=== PATIENT | female | born 1955 | race Caucasian/White ===

== ENCOUNTER → 2020-03-20 15:15 | Outpatient (CLI) | payer MEDICARE, BC, OTHER, SELFPAY ==
[2020-03-20 18:59] LABS: Bacteria Urine None Seen
[2020-03-20 19:29] LABS: Appearance Urine UA CLEAR; Bilirubin Urine UA NEGATIVE (NEGATIVE); Color Urine UA YELLOW; Glucose Urine UA NEGATIVE (Negative); Ketones Urine UA NEGATIVE (NEGATIVE); Leukocyte Esterase Urine UA NEGATIVE (NEGATIVE); Nitrite Urine UA NEGATIVE (Negative); Occult Blood Urine UA NEGATIVE (Negative); Protein Urine UA NEGATIVE (Negative); Specific Gravity Urine UA 1.025 (1.000-1.035); Urobilinogen Urine UA 0.2 E.U./dL (0.2)
[2020-03-20 19:44] LABS: Culture Indicated Urine Cult Not Indicated; Mucus Urine 1+ (Negative); RBC Urine 0-1/HPF (0-5/HPF); Squamous Epithelial Cell Urine 0-1 /HPF (0-5/HPF); Transitional Epi Cells Urine 0-1/HPF (0-5/HPF); WBC Urine 0-1/HPF (0-5/HPF)
== END ==
PROVIDERS: Family Provider Physician Assistant Medical; PCP Physician Assistant Medical; Visit Provider Obstetrics & Gynecology
DX: R31.9 Hematuria, unspecified (principal)
CPT/HCPCS: 81001

== ENCOUNTER 2021-04-23 02:34 | Emergency (ER) | payer MEDICARE, BC, OTHER, SELFPAY ==
[2021-04-23 02:50] VITALS: BP 158/95; PULSE 78; RESP 18; TEMP 36.2; O2SAT 97; BMI 32.0
--- NOTE | 2021-04-23 02:50 | DI.RAD.S_ITS ---
PROCEDURE: XR ACUTE ABDOMEN SERIES INDICATIONS: Abdominal pain TECHNIQUE: One view chest and two views of the abdomen were acquired. COMPARISON: None. FINDINGS: Surgical changes and devices: None. Chest: Lungs are clear. Heart size is normal. No pleural effusions. No pneumoperitoneum. Abdomen: Scattered small bowel and colonic gas. No dilated loops of bowel seen. No air-fluid levels. Prominent stool in the colon. No suspicious calcifications. Visualized solid organ contours appear normal. Bones: No suspicious bony lesions. Minimal scoliosis at the lumbar spine. IMPRESSION: No acute cardiopulmonary abnormality. Prominent stool in the colon. This could be seen in constipation. This report is concordant with the overnight preliminary interpretation. Dictated by: Thanh Rodriguez M.D. on 04/23/2021 at 8:17 Approved by: Thanh Rodriguez M.D. on 04/23/2021 at 8:18
[2021-04-23 03:38] LABS: BUN Creatinine Ratio 18.5 (6-22); Blood Urea Nitrogen 15 mg/dL (7-17); Calcium 9.4 mg/dL (8.4-10.2); Carbon Dioxide 31 mmol/L (22-32); Chloride 103 mmol/L (98-107); Estimated Glomerular Filt Rate > 60.0 mL/min (>60); Glucose 100 mg/dL (80-110); HEMOLYSIS < 15 (0-50); Potassium 3.5 mmol/L (3.4-5.1); Sodium 141 mmol/L (137-145)
[2021-04-23 03:39] LABS: Add Manual Diff / Slide Review NO; Basophils Absolute Auto 0 /uL (0-100); Basophils Percent Auto 0.9 % (0-2); Eosinophils Absolute Auto 200 /uL (0-450); Eosinophils Percent Auto 4.4 % (2-4); Hematocrit 39.4 % (36-46); Hemoglobin 13.2 g/dL (12.0-16.0); Lymphocytes Absolute Auto 1600 /uL (1100-4500); Mean Corpuscular HGB Conc 33.5 % (30-36); Mean Corpuscular Hemoglobin 30.7 PG (26-34); Mean Corpuscular Volume 91.8 fL (80-100); Monocytes Absolute Auto 400 /uL (0-900); Monocytes Percent Auto 8.4 % (3-14); Neutrophils Absolute Auto 2100 /uL (1500-7000); Neutrophils Percent Auto 49.3 % (50-75); Platelet Count 217 X10^3/uL (150-400); Red Cell Distribution Width 13.5 % (11.6-14.8); White Blood Cell Count 4.3 X10^3/uL (4.5-11.0)
--- NOTE | 2021-04-23 03:45 | ED_ITS ---
HPI - Abdominal Pain General Chief Complaint: Extremity Problem,Nontraumatic Stated Complaint: tingling in legs Time Seen by Provider: 04/23/21 02:43 Source: patient Mode of arrival: Ambulatory Limitations: no limitations History of Present Illness HPI narrative: 65-year-old female nonsmoker presents with her daughter and a chief complaint of very nonspecific anterior abdominal discomfort, if not tingling which has been present for many weeks if not months. She states nothing obviously provokes or palliates the discomfort but she does feel electrical type sensations running down her anterior legs. She denies any significant lower extremity pain. She denies any weakness. She has had no recent falls, or trauma. She denies any new medications or diet. She denies any saddle anesthesia, loss of control of bowel or bladder. She has had no fever or chills. She was seen and evaluated at an urgent care about 2 weeks ago and had labs and urine which were largely unremarkable. She has chronic neck and back pain. Related Data Home Medications Medication Instructions Recorded Confirmed meloxicam 7.5 mg tablet (Mobic) 7.5 mg PO [facility] #0 06/02/03/20/21 Previous Rx's Medication Instructions Recorded CMP Clobetasol 0.05%/Tretinoin 1 ea TOPICAL .1XW #15 g 03/20/21 0.05% Cream in Versabase estradiol 1 g VAGINAL 2XW #42.5 g 03/20/21 gabapentin 300 mg capsule 300 mg PO BEDTIME #14 cap 04/23/21 Allergies Allergy/AdvReac Type Severity Reaction Status Date / Time No Known Drug Allergies Allergy Unknown Unverified 03/20/21 08:51 Penicillins [PENICILLINS] AdvReac Severe I GET Unverified 03/20/21 08:51 SICK WITH IT, DIARRHEA Review of Systems Review of Systems Narrative: GENERAL: Denies chills, fatigue, malaise, fever, sweats. HEENT: Denies sinus pain, ear pain, sore throat, difficulty swallowing, dizziness. RESPIRATORY: Denies dyspnea, cough, wheezing, hemoptysis, sputum. CARDIOVASCULAR: Denies chest pain, palpitations, orthopnea, edema, GASTROINTESTINAL: See HPI. : Denies dysuria, frequency, incontinence, hematuria, urinary retention. MUSCULOSKELETAL: See HP SKIN: Denies rash, skin lesions, or other NEUROLOGIC: See HP PSYCHIATRIC: No concerning psychosocial issues. 12 point review of systems is negative except for those stated above Patient History Medical History Atrophic vulvovaginitis Surgical History Status post hysterectomy Social History Smoking Status: Never smoker Smoking Status: Never smoker alcohol intake frequency: 0-2 drinks per day Substance Use Type: does not use Exam Narrative Exam Narrative: GENERAL: [65 year old patient appears stated age. Well-developed patient, in mild distress. HEAD: Atraumatic. Normocephalic. EYES: Pupils equal round and reactive. Extraocular motions intact. No scleral ic terus. No injection or drainage. ENT: Nose without bleeding, purulent drainage. Throat without erythema, tonsillar hypertrophy or exudate. Airway patent. NECK: Trachea midline. Non tender CARDIOVASCULAR: Regular rate and rhythm without murmurs, gallops, or rubs. RESPIRATORY: Clear to auscultation. Breath sounds equal bilaterally. No wheezes, rales, or rhonchi. GASTROINTESTINAL: Abdomen soft, non-tender, nondistended. EXTREMITIES: No edema or joint tenderness. BACK: Nontender without deformity or crepitance. No flank tenderness. Saddle anesthesia. No measurable lower extremity weakness, extremities 5/5 strength. Bilateral patellar reflexes 2+. No swelling, erythema, warmth or reproducible tenderness NEURO: AOx3. SKIN: No rash or erythema of visible areas Initial Vital Signs Initial Vital Signs: Vital Signs Temperature 97.1 F L 04/23/21 02:50 Pulse Rate 78 04/23/21 02:50 Respiratory Rate 18 04/23/21 02:50 Blood Pressure 158/95 H 04/23/21 02:50 Pulse Oximetry 97 04/23/21 02:50 Course Orders Ordered: ED Orders 04/23/21 02:50 XR acute abdomen series Stat 04/23/21 03:15 Basic Metabolic Panel Stat Complete Blood Count AUTO DIFF Stat Vital Signs Vital signs: Vital Signs - 8 hr 04/23/21 02:50 Temperature 97.1 F L Pulse Rate 78 Respiratory Rate 18 Blood Pressure 158/95 H Pulse Oximetry 97 MDM - Abdominal Pain Lab Data Result diagrams: 04/23/21 03:15 04/23/21 03:15 Labs: Lab Results 04/23/21 04/23/21 Range/Units 03:15 03:15 WBC 4.3 L (4.5-11.0) X10^3/uL RBC 4.30 (4.0-5.2) X10^6/uL Hgb 13.2 (12.0-16.0) g/dL Hct 39.4 (36-46) % MCV 91.8 (80-100) fL MCH 30.7 (26-34) PG MCHC 33.5 (30-36) % RDW 13.5 (11.6-14.8) % Plt Count 217 (150-400) X10^3/uL Neut % (Auto) 49.3 L (50-75) % Lymph % (Auto) 37.0 (25-40) % Glenn % (Auto) 8.4 (3-14) % Eos % (Auto) 4.4 H (2-4) % Baso % (Auto) 0.9 (0-2) % Neut # (Auto) 2100 (4287-3789) /uL Lymph # (Auto) 1600 (8085-3327) /uL Glenn # (Auto) 400 (0-900) /uL Eos # (Auto) 200 (0-450) /uL Baso # (Auto) 0 (0-100) /uL Sodium 141 (137-145) mmol/L Potassium 3.5 (3.4-5.1) mmol/L Chloride 103 (98-107) mmol/L Carbon Dioxide 31 (22-32) mmol/L BUN 15 (7-17) mg/dL Creatinine 0.81 (0.52-1.04) mg/dL Estimated GFR > 60.0 (>60) mL/min BUN/Creatinine Ratio 18.5 (6-22) Glucose 100 (80-110) mg/dL Calcium 9.4 (8.4-10.2) mg/dL Point of care testing: Urine Dip Bedside Urine Glucose Negative Bedside Urine Bilirubin - Negative Bedside Urine Ketone - Negative Urine Specific Omega 1.020 Bedside Urine Occult Blood - Negative Bedside Urine pH 6.0 Bedside Urine Protein - Negative Bedside Urine Urobilinogen - Negative Bedside Urine Nitrite - Negative Bedside Urine Leukocytes - Negative Esterase MDM Narrative Medical decision making narrative: Patient's story and exam are reassuring. She has very minimal anterior abdominal pain but unremarkable exam. Imaging would suggest a large stool burden. She has no evidence of obstruction, no pain, tolerating orals. The description of discomfort in sensation in her lower legs suggest potentially a radicular component, particularly given her chronic neck and back pain. She does not complain of any back pain currently however. She has no signs of cauda equina such as saddle anesthesia, loss of bowel or bladder, lower extremity weakness, nor other neuro surgical emergencies such as epidural abscess or hematoma given lack of pain, fever or use of blood thinners. Discussion with patient about the potential of radicular symptoms and we agree on a short trial of gabapentin for use prior to her follow-up with her PCP. Questions have been answered to her apparent satisfaction. Return precautions discussed Discharge Plan Departure Patient Disposition: Home Clinical Impression: Abdominal pain, chronic, bilateral lower quadrant, Paresthesia of bilateral legs Instructions: DI for Abdominal Pain-Adult, DI for Numbness/Tingling Activity Restrictions/Additional Instructions: *You have been diagnosed with [acute on chronic anterior abdominal pain with paresthesias and shooting pain into the legs. Physical exam is very reassuring, as are labs and imaging. *What to do: *Please continue to take your regular medications as directed. [x ] New medication prescriptions sent to your pharmacy: [ [facility]] [ ] New medication written as a paper prescription [ ] No new medications given *Please follow up with your primary care provider in 2-3 days, call for an appointment. Let them know you were seen in the Emergency Department and that we ask that you be seen in follow up. We will electronically transmit a record of today's note if your PCP is in our system *If you do not have a primary care provider please contact the [facility] Resource line at [phone]. They will ask some questions about your medical history and help get you set up with a doctor in the community. *Return to Emergency Department if you should have any new, worsening or concerning symptoms, such as [fever greater than 101 F, shaking chills, worsening pain, persistent vomiting or other bothersome symptoms] Prescriptions: New gabapentin 300 mg capsule 300 mg PO BEDTIME Qty: 14 RF: 0 No Action meloxicam [Mobic] 7.5 MG tablet 7.5 mg PO [facility] Qty: 0 RF: 0 CMP Clobetasol 0.05%/Tretinoin 0.05% Cream in Versabase 1 ea topical .1XW Qty: 15 RF: 3 estradiol 0.01 % (0.1 mg/gram) cream 1 g vaginal 2XW Qty: 42.5 RF: 3 Referrals: Hali Salazar PA-C [Primary Care Provider] -
== END 2021-04-23 04:40 | disposition home or self-care (01) ==
PROVIDERS: Emergency Provider Emergency Medicine; Family Provider Physician Assistant Medical; PCP Physician Assistant Medical
DX: G89.29 Other chronic pain (principal); R10.30 Lower abdominal pain, unspecified; R20.2 Paresthesia of skin
CPT/HCPCS: 74022; 80048; 81003; 85025; 99283; 99284

== ENCOUNTER 2022-07-14 07:17 | Day surgery (SDC) | payer MEDICARE, BC, OTHER, SELFPAY ==
--- NOTE | 2022-07-14 | PATH_ITS ---
[facility] Accession Number: [id number] No. of containers..03 Tissue . 01 Material submitted: . PART A: stomach - ANTRUM PART B: gastrointestinal site - GASTRIC POLYPS PART C: colon - ASCENDING POLYP . 01 Diagnosis: A. Stomach, Antrum, Biopsy: Antral mucosa with mild chronic inflammation. No evidence of Helicobacter on H/E stain. Negative for intestinal metaplasia. Negative for dysplasia and malignancy. . B. Stomach, Polyps, Biopsies: Gastric body mucosa with mild foveolar metaplasia. No evidence of Helicobacter on H/E stain. Negative for intestinal metaplasia. Negative for dysplasia and malignancy. . C. Ascending Colon, Polyp, Biopsy: Tubular adenoma. [facility] 07/18/2022 1318 Local . 01 Electronically signed: . Radha Curtis MD, Pathologist NPI- [id number] . 01 Gross description: . Part A: ANTRUM: Received in formalin are 2 fragment(s) of orr, soft tissue measuring 0.2 x 0.2 x 0.2 cm to 0.3 x 0.2 x 0.2 cm submitted entirely in 1 cassette(s) Part B: GASTRIC POLYPS: Received in formalin are 2 fragment(s) of orr, soft tissue measuring 0.2 x 0.2 x 0.2 cm to 0.3 x 0.2 x 0.2 cm submitted entirely in 1 cassette(s) Part C: ASCENDING POLYP: Received in formalin is 1 fragment(s) of orr, soft tissue measuring 0.2 x 0.2 x 0.2 cm submitted entirely in 1 cassette(s) /LAUREN 07/15/2022 1857 Local . 01 Pathologist provided ICD-10: D12.2 . 01 CPT . 508217, 438727, 038698 Specimen Comment: A courtesy copy of this report has been sent to [phone], [phone] Specimen Comment: [id number] Performed at: 01 [facility] [address] [place] [address] [id number] MD Chris Galvan MD Phone: [phone]
[2022-07-14 07:59] VITALS: BMI 32.5
[2022-07-14] MEDS: LACTATED RINGERS 1,000 ML 84 ML IV (08:09)
[2022-07-14 08:10] VITALS: BP 122/77; PULSE 90; RESP 16; TEMP 36.6; O2SAT 100
--- NOTE | 2022-07-14 08:39 | PM.HP.1 ---
History of Present Illness History of Present Illness Date Patient Seen: 07/14/22 Time Patient Seen: 08:39 Chief complaint: EGD/COLONOSCOPY Narrative: I reviewed my recent office note. No significant changes although the patient is not using anything for a bowel regimen. She is taking Pepcid but did not take her dose this morning. Patient History Medical History Atrophic vulvovaginitis Surgical History Status post hysterectomy Family & Social History Social History: household members spouse Tobacco & Substance use: Smoking Status Never smoker alcohol intake never alcohol intake frequency 0-2 drinks per day Substance Use Type does not use Meds Home Medications and Allergies Home Medications Medication Instructions Recorded Confirmed Type estradiol 0.01% (0.1 mg/gram) 1 g vaginal 2XW #42.5 grams 03/20/21 07/14/22 Rx vaginal cream CMP Clobetasol 0.05%/Tretinoin 1 ea topical .1XW #15 grams 04/04/22 07/14/22 Rx 0.05% Cream in Versabase apixaban 2.5 mg tablet (Eliquis) 2.5 mg PO BID 07/14/22 07/14/22 History metoprolol succinate 25 mg 12.5 mg PO BID 07/14/22 07/14/22 History tablet,extended release 24 hr Allergies Allergy/AdvReac Type Severity Reaction Status Date / Time Penicillins [PENICILLINS] AdvReac Severe I GET Verified 07/14/22 07:58 SICK WITH IT, DIARRHEA Review of Systems Review of Systems ROS: Yes All systems reviewed with the patient and are negative except as otherwise documented Exam Vital Signs (past 8 hours): - 07/14/22 08:10 Temperature 97.9 F Pulse Rate 90 Respiratory Rate 16 Blood Pressure 122/77 Pulse Oximetry 100 Oxygen Delivery Method Room Air Oxygen Delivery Method Room Air Const General: cooperative HENMT Head: normal to inspection Eyes General: appearance normal, both eyes and all related structures Neck Neck: normal visual inspection Chest Chest: normal inspection of the chest Resp Effort & Inspection: normal respiratory effort Cardio Rate: regular rate GI Inspection: normal to inspection Skin General: no rashes or lesions noted Neuro General: patient alert and patient awake Extrem General: normal to inspection and no pedal edema Psych Appearance: grossly normal Assessment & Plan Assessment & Plan narrative: 66-year-old female with refractory reflux symptoms. She struggles with constipation. There is a family history of colon cancer. EGD and colonoscopy are pursued today. Time Spent With Patient Critical Care time: I spent a total of [] minutes of critical care time on this patient's care today; this time is exclusive of procedural time.
--- NOTE | 2022-07-14 08:41 | PM.PREOP ---
Pre-operative Note Interval Note History & Physical reviewed/Exam performed by Physician: Yes Changes to H&P: No ASA Class (for procedural sedation): III
--- NOTE | 2022-07-14 09:18 | P.OP.EGD&C_ITS ---
Operative Date/Time/Diagnoses Date of procedure: 07/14/22 Time of procedure: 09:18 Pre-op diagnosis: Refractory GERD. Family history of colon cancer. Post-op diagnosis: same Procedure & Clinicians Study performed: EGD with biopsies and colonoscopy with cold forceps polypectomy Same procedure as scheduled: Yes Indications: Refractory GERD and a family history of colon cancer. Surgeon: Jack Barraza Procedure Notes SCOAP/Timeout: Done Procedure in detail: After the risks and benefits were explained, written and verbal informed consent was obtained. The patient was brought into the procedure room and placed into t he left lateral decubitus position. Please see anesthesia notes for sedation details. The scope was introduced into the mouth through the bite block and advanced under direct visualization to the 2nd portion of the duodenum. The scope was slowly withdrawn carefully examining the mucosa for any defects or lesions. Retroflexed views were accomplished in the stomach. The stomach was decompressed, the scope was then removed from the patient who tolerated the procedure well. The patient was turned around, a digital rectal examination was accomplished. The scope was introduced into the rectum and advanced to the cecum as identified by the appendiceal orifice and ileocecal valve. The scope was slowly withdrawn to carefully examine the mucosa for any defects or lesions. Multiple direct vi ews were made through the dentate line for exclusion of pathology. The colon was decompressed scope removed from the patient who tolerated the procedure well. Adult colonoscope Bowel prep adequate Scope withdrawal time: 7 minutes Sedation minutes: 21 Complications: none Impression: 1. Duodenum: No gross lesions identified from the bulb through to the 2nd portion. 2. Stomach: Diffuse erythema throughout the antrum. Biopsies were taken for exclusion of Helicobacter pylori or other pathology. There were a few diminutive benign-appearing polyps in the gastric body and a couple of these were sampled for histopathologic analysis. Retroflexed views of the LES were unremarkable. 3. Esophagus: The squamocolumnar junction correlated with the top of the gastric folds. GEJ was at approximately 40 cm from the incisors. No acute erosive changes no strictures no mass lesions no suggestion of Barretts. 4. Colon: The patient had some mild diverticulosis in the left colon. The colon was a little redundant rendering navigation somewhat challenging. There was a diminutive polyp perhaps 3 mm removed with cold forceps from the ascending colon. No additional significant pathology was appreciated. There was some evidence of scattered sub mucosal petechiae throughout the colon suggestive of prep induced irritation. Endoscopic diagnosis 1. Mild gastropathy 2. Diminutive gastric polyps 3. Diminutive colon polyp 4. Diverticulosis Post-procedure Plan for aftercare: 1. Await histopathology. 2. Continue daily Pepcid. 3. Bowel regimen with daily fiber such as [id number] Citrucel or Metamucil to promote better evacuations. 4. Repeat colonoscopy 5 years. 5. Okay to resume Eliquis starting tomorrow. Disposition: PACU
[2022-07-14 09:21] VITALS: BP 147/97; PULSE 71; RESP 15; TEMP 35.8; O2SAT 98
[2022-07-14 09:26] VITALS: BP 123/77; PULSE 72; RESP 14; O2SAT 99
[2022-07-14 09:31] VITALS: BP 132/87; PULSE 69; RESP 16; O2SAT 100
[2022-07-14 09:36] VITALS: BP 144/80; PULSE 69; RESP 16; O2SAT 100
[2022-07-14 09:50] VITALS: BP 140/72; PULSE 71; RESP 15; O2SAT 98
--- NOTE | 2022-07-14 10:02 | SUR.PHASEII ---
1000: Pt A&Ox4, reports sore upper lip, small LAC noted, ice applied. VSS and ready to discharge. Discharge instructions reviewed with patient and time allowed for questions. Pt voided. IV DC'd intact. Pt left unit in stable condition, with all personal belongings, via w/c to ER entrance where spouse will transport pt home.
== END 2022-07-14 10:04 | disposition home or self-care (01) ==
PROVIDERS: Family Provider Physician Assistant Medical; PCP Physician Assistant Medical; Referring Provider Internal Medicine Gastroenterology; Visit Provider Internal Medicine Gastroenterology
PROC: 0DJ08ZZ Inspection of Upper Intestinal Tract, Via Natural or Artificial Opening Endoscopic (ICD-10-PCS; CPT 43235; principal; 2022-07-14 08:30)
PROC: 0DJD8ZZ Inspection of Lower Intestinal Tract, Via Natural or Artificial Opening Endoscopic (ICD-10-PCS; CPT 45378; 2022-07-14 08:30)
DX: K21.9 Gastro-esophageal reflux disease without esophagitis (principal); Z12.11 Encounter for screening for malignant neoplasm of colon; Z80.0 Family history of malignant neoplasm of digestive organs; K57.30 Diverticulosis of large intestine without perforation or abscess without bleeding; K31.9 Disease of stomach and duodenum, unspecified; K31.7 Polyp of stomach and duodenum; K29.50 Unspecified chronic gastritis without bleeding; D12.2 Benign neoplasm of ascending colon
CPT/HCPCS: 45380; 43239; J2704; J3010

== ENCOUNTER 2022-11-26 18:29 | Emergency (ER) | payer MEDICARE, OTHER, SELFPAY ==
[2022-11-26 18:33] VITALS: BP 134/76; PULSE 78; RESP 15; TEMP 36.6; O2SAT 99; BMI 32.8
--- NOTE | 2022-11-26 18:38 | DI.RAD.S_ITS ---
PROCEDURE: XR FOOT LT MIN 3V INDICATIONS: fall TECHNIQUE: 3 views of the foot were acquired. COMPARISON: None. FINDINGS: Bones: There is a slightly comminuted 5th metatarsal fracture at the base. There is a fracture plane extending to the articular surface as well as a transverse fracture plane across the neck. Tarsometatarsal alignment is not well seen on this image set, however appears normal on the ankle views. Incidental note is made of several periarticular lucencies at the interphalangeal and MTP joints as well as moderate hallux valgus at the 1st MTP. There is a deformity of a probable 4th metatarsal neck fracture, likely remote. Soft tissues: No tibiotalar joint effusion. Achilles tendon appears normal. IMPRESSION: 1. Intra-articular, comminuted, 5th metatarsal base fracture. 2. Probable remote 4th metatarsal neck fracture. Correlate with site tenderness. 3. Several juxta-articular lucencies raising the possibility of an inflammatory arthropathy such as gout. Dictated by: Yahaira Jacques M.D. on 11/26/2022 at 19:36 Approved by: Yahiara Jacques M.D. on 11/26/2022 at 19:39
--- NOTE | 2022-11-26 18:38 | DI.RAD.S_ITS ---
PROCEDURE: XR ANKLE LT MIN 3V INDICATIONS: fall TECHNIQUE: 3 views of the ankle were acquired. COMPARISON: None. FINDINGS: Bones: There is an incompletely imaged, mildly distracted 5th proximal metatarsal fracture. No fractures at the ankle are seen. The ankle mortise remains intact. Soft tissues: No tibiotalar joint effusion. Achilles tendon seen due to overlying artifact. IMPRESSION: Incompletely evaluated 5th proximal metatarsal fracture. Dictated by: Yahaira Jacques M.D. on 11/26/2022 at 19:34 Approved by: Yahaira Jacques M.D. on 11/26/2022 at 19:36
--- NOTE | 2022-11-26 18:38 | DI.RAD.S_ITS ---
PROCEDURE: XR KNEE RT 3V INDICATIONS: fall TECHNIQUE: 3 views of the knee were acquired. COMPARISON: [facility] [place], CR, XR KNEE ARTHRITIC SERIES RT, 03/13/2020, 15:00. [facility], [place], KNEE 1-2 VIEWS LEFT, 06/13/2016, 10:41. FINDINGS: Bones: Knee arthroplasty components are in position. There is no periprosthetic fracture or radiographic evidence of prosthetic loosening. Soft tissues: Moderate-sized, chronic joint effusion. No suspicious soft tissue calcifications. IMPRESSION: 1. No acute fractures. 2. Stable, chronic moderate-sized joint effusion. Dictated by: Yahaira Jacques M.D. on 11/26/2022 at 19:40 Approved by: Yahaira Jacques M.D. on 11/26/2022 at 19:41
--- NOTE | 2022-11-26 18:42 | DI.RAD.S_ITS ---
PROCEDURE: XR KNEE LT 3V INDICATIONS: fall TECHNIQUE: 3 views of the knee were acquired. COMPARISON: [facility] [place], CR, XR KNEE 4+ VIEWS LEFT, 10/11/2020, 10:53. [facility], [place], KNEE 1-2 VIEWS LEFT, 06/13/2016, 10:41. FINDINGS: Bones: No fractures or dislocations. No suspicious bony lesions. Soft tissues: Suboptimal positioning to fully evaluate for joint effusion. No suspicious soft tissue calcifications. IMPRESSION: Intact left knee. Dictated by: Yahaira Jacques M.D. on 11/26/2022 at 19:32 Approved by: Yahaira Jacques M.D. on 11/26/2022 at 19:34
--- NOTE | 2022-11-26 20:17 | ED.FALL ---
HPI - Fall General Chief Complaint: Fall Stated Complaint: fell/lt foot ankle injury Time Seen by Provider: 11/26/22 20:01 Source: patient Mode of arrival: Wheelchair History of Present Illness HPI Narrative: Patient is a 58-year-old female who is here for evaluation of injuries that she sustained when she states that she tripped while walking down a sidewalk. She states she fell forward. Landed on both of her knees. She has discomfort to both of her knees and also her left foot. She did not hit her head. There was no loss of consciousness. She has been ambulatory since then but has had quite a bit of discomfort. Not on blood thinners. Related Data Home Medications Medication Instructions Recorded Confirmed apixaban 2.5 mg tablet (Eliquis) 2.5 mg PO BID 07/14/22 07/14/22 metoprolol succinate 25 mg 12.5 mg PO BID 07/14/22 07/14/22 tablet,extended release 24 hr Previous Rx's Medication Instructions Recorded estradiol 0.01% (0.1 mg/gram) 1 g vaginal 2XW #42.5 grams 03/20/21 vaginal cream CMP Clobetasol 0.05%/Tretinoin 1 ea topical .1XW #15 grams 04/04/22 0.05% Cream in Versabase Allergies Allergy/AdvReac Type Severity Reaction Status Date / Time Penicillins [PENICILLINS] AdvReac Severe I GET Verified 11/26/22 18:33 SICK WITH IT, DIARRHEA Review of Systems Constitutional Constitutional: Reports system reviewed and no additional complaints, except as documented Musculoskeletal Musculoskeletal: Reports system reviewed and no additional complaints, except as documented Integumentary/Breasts Skin/Breast: Reports system reviewed and no additional complaints, except as documented Neurologic Neurologic: Reports system reviewed and no additional complaints, except as documented Hematologic/Lymphatic On Anticoagulants: No Patient History Medical History Atrophic vulvovaginitis Surgical History Status post hysterectomy Social History household members: spouse Smoking Status: Never smoker alcohol intake: never Smoking Status: Never smoker alcohol intake frequency: 0-2 drinks per day Substance Use Type: does not use Exam Initial Vital Signs Initial Vital Signs: Vital Signs Temperature 97.9 F 11/26/22 18:33 Pulse Rate 78 11/26/22 18:33 Respiratory Rate 15 11/26/22 18:33 Blood Pressure 134/76 11/26/22 18:33 Pulse Oximetry 99 11/26/22 18:33 Oxygen Delivery Method Room Air 11/26/22 18:33 Skin General: no rashes or lesions noted Neuro Sensory Exam: no sensory deficits noted Extrem Other: Patient does have tenderness to palpation on the lateral aspect of the left foot. No forefoot tenderness. No Lisfranc tenderness. Ankles are unremarkable. Knees unremarkable. Procedures Orthopedic Splinting/Casting Injury #1: Side: left Lower Extremity Injury Location: foot Lower Extremity Immobilizer: posterior splint Other Orthopedic Equipment: crutches Post splinting neuro exam: no change Post splinting vascular exam: no change Placed by: Nursing Course Orders Ordered: Discontinued Medications Hydrocodone Bitart/Acetaminophen (Hydrocodone/Acet 5/325 Prepack) 1 bottle MISC SEEINSTR ONE Stop: 11/26/22 21:15 Last Admin: 11/26/22 21:17 Dose: 1 bottle Documented By: [facility] Vital Signs Vital signs: Vital Signs - 8 hr 11/26/22 21:21 Pulse Rate 70 Respiratory Rate 18 Blood Pressure 131/75 Pulse Oximetry 100 Oxygen Delivery Method Room Air MDM - Fall Imaging Data Extremity x-ray #1: Radiologist's Impression: PROCEDURE:? XR ANKLE LT MIN 3V ? INDICATIONS:? fall ? TECHNIQUE:? 3 views of the ankle were acquired.? ? COMPARISON:? None. ? FINDINGS:? ? Bones:? There is an incompletely imaged, mildly distracted 5th proximal metatarsal fracture.? No fractures at the ankle are seen.? The ankle mortise remains intact. ? Soft tissues:? No tibiotalar joint effusion.? Achilles tendon seen due to overlying artifact.? ? ? IMPRESSION:? Incompletely evaluated 5th proximal metatarsal fracture. Extremity x-ray #2: Radiologist's Impression: PROCEDURE:? XR FOOT LT MIN 3V ? INDICATIONS:? fall ? TECHNIQUE:? 3 views of the foot were acquired.? ? COMPARISON:? None. ? FINDINGS:? ? Bones:? There is a slightly comminuted 5th metatarsal fracture at the base.? There is a fracture plane extending to the articular surface as well as a transverse fracture plane across the neck.? Tarsometatarsal alignment is not well seen on this image set, however appears normal on the ankle views.? Incidental note is made of several periarticular lucencies at the interphalangeal and MTP joints as well as moderate hallux valgus at the 1st MTP.? There is a deformity of a probable 4th metatarsal neck fracture, likely remote. ? Soft tissues:? No tibiotalar joint effusion.? Achilles tendon appears normal.? ? ? IMPRESSION:? ? 1. Intra-articular, comminuted, 5th metatarsal base fracture. ? 2. Probable remote 4th metatarsal neck fracture.? Correlate with site tenderness. ? 3. Several juxta-articular lucencies raising the possibility of an inflammatory arthropathy such as gout.? Extremity x-ray #3: Radiologist's Impression: PROCEDURE:? XR KNEE RT 3V ? INDICATIONS:? fall ? TECHNIQUE:? 3 views of the knee were acquired.? ? COMPARISON:? [facility], CR, XR KNEE ARTHRITIC SERIES RT, 03/13/2020, 15:00.? [facility], KNEE 1-2 VIEWS LEFT, 06/13/2016, 10:41. ? FINDINGS:? ? Bones:? Knee arthroplasty components are in position.? There is no periprosthetic fracture or radiographic evidence of prosthetic loosening. ? Soft tissues:? Moderate-sized, chronic joint effusion.? No suspicious soft tissue calcifications.? ? ? IMPRESSION:? ? 1. No acute fractures. ? 2. Stable, chronic moderate-sized joint effusion.? knee x-rays: Radiologist's Impression: PROCEDURE:? XR KNEE LT 3V ? INDICATIONS:? fall ? TECHNIQUE:? 3 views of the knee were acquired.? ? COMPARISON:? [facility], CR, XR KNEE 4+ VIEWS LEFT, 10/11/2020, 10:53.? [facility], KNEE 1-2 VIEWS LEFT, 06/13/2016, 10:41. ? FINDINGS:? ? Bones:? No fractures or dislocations.? No suspicious bony lesions.? ? Soft tissues:? Suboptimal positioning to fully evaluate for joint effusion.? No suspicious soft tissue calcifications.? ? ? IMPRESSION:? Intact left knee. [facility] Narrative Medical decision making narrative: This was a mechanical fall. X-ray does show fracture of the proximal left metatarsal. No other injuries found on the x-rays. Patient was placed in a posterior splint. Will make nonweightbearing. When patient follow-up with orthopedics. She was given return precautions. She expressed understanding and agreement. Discharge Plan Departure Patient Disposition: Home Clinical Impression: Foot fracture, left Instructions: How to Use Crutches, DI for Foot Fracture, How to Take Care of Your Splint Activity Restrictions/Additional Instructions: The splint that was placed today does need to stay on. Needs to stay clean and stay dry. You do need to use the crutches. Tomorrow contact the orthopedic doctors with a number provided below for a follow-up. Return to the emergency department for new or worsening symptoms. Prescriptions: No Action CMP Clobetasol 0.05%/Tretinoin 0.05% Cream in Versabase 1 ea topical .1XW Qty: 15 3RF Rx Instructions: Apply small amount to external genitalia 1 time weekly. estradiol 0.01 % (0.1 mg/gram) cream 1 g vaginal 2XW Qty: 42.5 3RF Rx Instructions: Apply small amount to external genitalia twice a week metoprolol succinate 25 mg Tablet Extended Release 24 Hr 12.5 mg PO BID Eliquis 2.5 mg Tablet 2.5 mg PO BID Referrals: Gaby Carnes MD [Physician] - Hali Salazar PA-C [Primary Care Provider] - Stand Alone Forms: Patient Portal/API
[2022-11-26] MEDS: HYDROCODONE/ACET 5/325 PREPACK 1 BOTTLE MISC (21:17)
[2022-11-26 21:21] VITALS: BP 131/75; PULSE 70; RESP 18; O2SAT 100
== END 2022-11-26 21:22 | disposition home or self-care (01) ==
PROVIDERS: Emergency Provider Emergency Medicine; Family Provider Physician Assistant Medical; PCP Physician Assistant Medical
DX: S92.342A Displaced fracture of fourth metatarsal bone, left foot, initial encounter for closed fracture (principal); S89.92XA Unspecified injury of left lower leg, initial encounter; S89.91XA Unspecified injury of right lower leg, initial encounter; W01.0XXA Fall on same level from slipping, tripping and stumbling without subsequent striking against object, initial encounter
CPT/HCPCS: 73562; 73610; 73630; 99284

== ENCOUNTER → 2023-01-23 15:25 | Outpatient (CLI) | payer MEDICARE, OTHER, SELFPAY ==
--- NOTE | 2023-01-23 15:26 | DI.US.S_ITS ---
PROCEDURE: US PELVIC COMPLETE INDICATIONS: VAGINAL BLEEDING X 1 DAY TECHNIQUE: Real-time scanning was performed of the pelvic organs, with image documentation. Additional endovaginal scanning was necessary due to incomplete visualization of the adnexal and endometrial structures by transabdominal scanning. COMPARISON: None. FINDINGS: Uterus: Surgically absent. Ovaries: Surgically absent. Other: No pathologic free abdominal or pelvic fluid. Bowel within the pelvis. IMPRESSION: Prior hysterectomy and bilateral salpingo oophorectomy. No findings to explain the patient's vaginal bleeding. We strive to produce accurate, complete, and clear reports of imaging services. To assist us in improving patient care, this report was composed using standard report templates and voice recognition software. Therefore, it may contain abnormal punctuation, insertions and/or omissions. Occasional wrong-word or sound-alike substitutions may occur. Though we review the report and make efforts to correct it, we do recommend that the report be read carefully in proper context to recognize any text inaccuracies. Dictated by: Jai Klein M.D. on 01/23/2023 at 16:46 Approved by: Jai Klein M.D. on 01/23/2023 at 16:48
== END ==
PROVIDERS: Family Provider Physician Assistant Medical; PCP Physician Assistant Medical; Referring Provider Specialist; Visit Provider Specialist
DX: N93.9 Abnormal uterine and vaginal bleeding, unspecified (principal); Z90.710 Acquired absence of both cervix and uterus; Z90.722 Acquired absence of ovaries, bilateral
CPT/HCPCS: 76830; 76856

== ENCOUNTER → 2023-02-21 10:44 | Outpatient (CLI) | payer MEDICARE, OTHER, SELFPAY ==
--- NOTE | 2023-02-21 10:45 | DI.MRI.S_ITS ---
PROCEDURE: MR ANKLE LT WO CON INDICATIONS: Sprain of unspecified ligament of left ankle TECHNIQUE: Noncontrast sagittal T1 spin echo and T2 fast spin echo with fat saturation, axial proton density fast spin echo and T2 fast spin echo with fat saturation, coronal T1 spin echo and T2 fast spin echo with fat saturation through the ankle/hindfoot. COMPARISON: [facility], CR, XR FOOT 3 VIEWS WEIGHT BEARING LEFT, 02/10/2023, 8:27. FINDINGS: Image quality: Excellent. Bones and joints: There is marrow edema involving 5th metatarsal shaft with a subacute appearing oblique fracture through 5th metatarsal base. Mild edema is also seen in adjacent 4th metatarsal shaft without discrete fracture line suggestive of stress related changes. No other fracture or dislocation. Midfoot and hindfoot joint osteoarthritic changes are seen. No hindfoot coalitions. No osteochondral injuries of the talar dome. No pathologic joint effusions. Medial structures: The posterior tibialis tendon is thickened at the level of distal talus and talonavicular joint. The flexor digitorum longus, and flexor hallucis longus tendons are intact. The posterior tibial neurovascular bundle appears normal within the tarsal tunnel, without extrinsic mass effect. The deep layer (anterior and posterior tibiotalar ligaments) and superficial layer (tibionavicular, tibiospring, and tibiocalcaneal ligaments) of the deltoid ligament appear normal. The spring ligament components (superomedial calcaneonavicular, medioplantar oblique calcaneonavicular, and inferoplantar longitudinal ligaments) are intact. Lateral structures: The anterior talofibular, calcaneofibular, and posterior talofibular ligaments appear thickened with intrasubstance T2 hyperintense signal particularly involving anterior talofibular ligament.. More superiorly, the anterior and posterior tibiofibular ligaments appear mildly thickened with intrasubstance T2 hyperintense signal. The tibiofibular syndesmosis is normal in width at 2 mm or less. The peroneus ruthy brevis tendon is intact. Thickened peroneus longus tendon at the level of calcaneocuboid joint and cuboid bone is seen. Adjacent bony peroneal tubercle and retrotrochlear prominence are normal in size. The sinus tarsi demonstrates normal fatty signal, without edema, fibrosis, or cyst formation. Visualized sinus tarsi components (cervical ligament, interosseous talocalcaneal ligament, roots of the inferior extensor retinaculum) appear normal. The calcaneonavicular and calcaneocuboid components of the bifurcate ligament appear intact. The dorsal calcaneocuboid ligament appears intact. Anterior structures: The tibialis anterior, extensor hallucis longus, and extensor digitorum longus tendons appear intact. The dorsal talonavicular ligament appears intact. Posterior and plantar structures: Achilles tendon is intact. Medial and lateral bands of the plantar fascia are mildly thickened. No abductor digiti quinti muscle atrophy to suggest [place] neuropathy. IMPRESSION: 1. Subacute appearing 5th metatarsal base fracture with edema in 5th metatarsal shaft. Mild edema also seen in 4th metatarsal shaft without discrete fracture line suggestive of stress related changes. No other fracture or dislocation. [id number] midfoot and hindfoot joint osteoarthritis. No osteochondral injuries of talar dome. 2. Tendinosis involving posterior tibialis tendon at the level of distal talus and talonavicular joint. 3. Tendinosis involving peroneus longus tendon at the level of calcaneocuboid joint and cuboid bone. 4. Medial ankle ligaments are intact. Low-grade sprain/intrasubstance partial-thickness tear involving anterior talofibular ligament, posterior talofibular ligament and calcaneofibular ligament as well as anterior and posterior tibial fibular ligaments. No full-thickness ankle ligament rupture. 5. Suggestion of low-grade plantar fasciitis at its insertion on plantar calcaneus. Dictated by: Tung Hidalgo M.D. on 02/23/2023 at 9:26 Approved by: Tung Hidalgo M.D. on 02/23/2023 at 9:39
== END ==
PROVIDERS: Family Provider Physician Assistant Medical; PCP Physician Assistant Medical; Referring Provider Orthopaedic Surgery Foot and Ankle Surgery; Visit Provider Orthopaedic Surgery Foot and Ankle Surgery
DX: S92.352A Displaced fracture of fifth metatarsal bone, left foot, initial encounter for closed fracture (principal); M19.072 Primary osteoarthritis, left ankle and foot; S93.492A Sprain of other ligament of left ankle, initial encounter; S93.412A Sprain of calcaneofibular ligament of left ankle, initial encounter; S93.402D Sprain of unspecified ligament of left ankle, subsequent encounter
CPT/HCPCS: 73721

== ENCOUNTER 2024-04-28 09:45 | Outpatient (RCR) | payer MEDICARE, OTHER, SELFPAY ==
--- NOTE | 2023-10-13 17:53 | PT.OIE ---
Current Diagnoses Muscle weakness (generalized) (10/13/23) Incomplete uterovaginal prolapse (10/13/23) Past Medical History (Last Reviewed 11/27/22 @ 04:48 by Cullen Bill DO) Atrophic vulvovaginitis Past Surgical History (Last Reviewed 07/14/22 @ 08:39 by Jack Barraza MD) Status post hysterectomy Visit Care Team Role Provider Type Hali Salazar PA-C Family Provider Non-Staff Primary Care Provider Specialty: Medical Address: [address] [place] [address] [facility] [address], [place], [address] Email: Sherrie Nuñez MD Attending Provider Physician Referring Provider Specialty: Gynecology VERIFICATION SPECIALIST Obstetrics Address: [address] [place] [address] [address], [place], [address] Email: [email or web address] Physical Therapy Initial Evaluation PT-OP-A Visit Information Start: 10/05/23 17:57 Freq: Status: Active Protocol: Document 10/13/23 07:32 LRN (Rec: 10/13/23 08:20 LRN [id number]) Out-Patient Physical Therapy Visit Information Visit Information Visit Type Initial Evaluation Visit Start Time 07:32 Visit Stop Time 08:12 Visit Number 1 Evaluation Information Evaluation Date 10/13/23 Precautions Precautions L foot 5th metatarsal fx 2022, Diverticulitis ~ 2022, A. Fib controlled w/meds 02/2022, R TKA 2015, L elbow fx w/pins 2014, Hysterectomy 2011. PT-OP-B Current Condition Start: 10/05/23 17:57 Freq: Status: Active Protocol: Document 10/13/23 07:32 LRN (Rec: 10/13/23 08:20 LRN [id number]) Current Condition History of Current Condition Onset Date 08/2023 Current Complaints Urinary leakage started Jun 2023. History of Current Condition States she has had a feeling of falling for past 5 yrs but didn't know what it was. She started to feel urinary leakage in Jun of this year and a friend told her about PT , so she sought PT to eliminate urinary leakage, help with prolapse, and to avoid surgery. Pt states she is freaked out and doesn't want it to get worse. She is but is not having sexual relations at this time. She uses one thin pad a day and leaks (1 drop) every time standing after urinating. She feels she urinates a lot because she reports drinking a lot of fluids. 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 Stop having to use pads. Have a HEP. Personal Factors Other Personal Factors That May Effect R Plantar fasciitis she is Therapy/Recovery seeking medical care for, so is not able to walk for exercise. Hasn't walked for a year due to Fx'd L foot 12/01/2022. Lives in [place]. PT-OP-C Subjective Start: 10/05/23 17:57 Freq: Status: Active Protocol: Document 10/13/23 07:32 LRN (Rec: 10/13/23 08:20 LRN [id number]) Patient Questionnaires Pelvic Pain and Urgency/Frequency Patient Symptom Scale Pelvic Pain Score 6 OP-PT Pain Assessment Pain Assessment Grid Paper Pain Assessment Grid Completed Yes Location L LBP Intensity 4 Scale Used Numeric (0 - 10) PT-OP-I Pelvic Floor Start: 10/05/23 17:57 Freq: Status: Active Protocol: Document 10/13/23 07:32 LRN (Rec: 10/13/23 08:20 LRN [id number]) Pelvic Floor Assessment Urine Urinary Symptoms Hesitancy,Dribbling After Urination,Incomplete Emptying, Falling Out Feeling/Heavy Leakage Size Small Leakage Cause Cough,Sneeze Leaks Per Day When getting up off toilet Voiding Frequency 2-6 Nocturia 2 Pads Used In 24 Hours 1 Urine Pad Type Panty Liner Bowel Bowel Movement Frequency 1-2x (every morning) [place] Stool Chart Type 1-7 6 Pelvic Clock Pelvic Clock 12-3 Tenderness Pelvic Clock 3-6 Tenderness Prolapse Prolapse Comments Uterus felt a end of inserted finger (~7cm). Contraction Ability Voluntary Contraction Weak Voluntary Relaxation Weak Manual Muscle Testing Left 1 Manual Muscle Testing Right 2 Manual Muscle Testing Anterior 1 Manual Muscle Testing Posterior 2 Muscle Endurance (Seconds) 10 Number of Quick Contractions In 10 4 Seconds Comments Pelvic Floor Comments Endurance: Pt is able to hold a contraction of varing intensity that weakned over time. PT-OP-J Posture/Palpation/Skin Start: 10/05/23 17:57 Freq: Status: Active Protocol: Document 10/13/23 07:32 LRN (Rec: 10/13/23 08:20 LRN [id number]) Posture Evaluation Position Standing Head/C-Spine Posture Forward Head T-Spine Posture Increased Kyphosis L-Spine Posture Increased Lordosis Shoulder Posture (L) Rounded,(R) Rounded,(L) Elevated Arm Posture (L) Internally Rotated,(R) Internally Rotated Pelvis Posture Anteriorly Tilted,(R) Iliac Crest Inferior Weight Distribution Weight Shifted Anterior Hip Posture (L) Externally Rotated,(R) Externally Rotated Comments Posture Comments C-Curve of spine with apex on left. Pt reports being told by chiropractor that one leg is long. PT-OP-K Range of Motion Start: 10/05/23 17:57 Freq: Status: Active Protocol: Document 10/13/23 07:32 LRN (Rec: 10/13/23 08:20 LRN [id number]) Lumbar Spine Range of Motion Lumbar Spine Active Degrees Testing Position Standing Flexion 65 Extension 22 Rotation Left 20 Rotation Right 10 Lateral Flexion Left 8 Lateral Flexion Right 8 ROM Limitations Soft Tissue Tightness Hip Goniometric Range of Motion Hip Right Passive Testing Position Supine Abduction 35 Internal Rotation 30 External Rotation 45 Left Passive Testing Position Supine Abduction 40 Internal Rotation 25 External Rotation 55 PT-OP-M Strength Start: 10/05/23 17:57 Freq: Status: Active Protocol: Document 10/13/23 07:32 LRN (Rec: 10/13/23 08:20 LRN [id number]) Trunk Strength Trunk Manual Muscle Testing Core Stabilization Poor core stab while moving legs against gravity. Hip Strength Hip Manual Muscle Testing Right Flexion (L2) 4 Good Extension (S1) 3 Fair Abduction 4 Good Adduction 2- Poor- External Rotation 4+ Good+ Internal Rotation 4 Good Comments Poor AD due to hip pain lying on the hip. Left Flexion (L2) 4+ Good+ Extension (S1) 3 Fair Abduction 4 Good Adduction 1 Trace External Rotation 4 Good Internal Rotation 4 Good Comments Trace AD due to hip pain lying on the hip. PT-OP-Q Treatments Start: 10/05/23 17:57 Freq: Status: Active Protocol: Document 10/13/23 07:32 LRN (Rec: 10/13/23 08:20 LRN [id number]) Self-Care/Home Management Treatment Education Other Education Discussed results of evaluation, attendance compliance, goals, and plan of care (POC). Pt agreeable to attendance compliance, goals and POC. Issued, discussed, & reviewed Bladder Diary for pt to complete over the next 7 days. Explained how to fill out diary and counting of urination times. Activities Self-Care/Home Management Activities Pt issued and briefly discussed deep breathing home exercise. PT-OP-T Assessment and Plan Start: 10/05/23 17:57 Freq: Status: Active Protocol: Document 10/13/23 07:32 LRN (Rec: 10/13/23 08:20 LRN [id number]) Physical Therapy Assessment Rehab Potential Rehabilitation Potential Excellent Evaluation Complexity Number of Personal Factors/Comorbidities 1-2 Number of Body Systems Impaired 4 or More Clinical Presentation at Evaluation Evolving Impairments Impairments Pain,ROM,Strength,Transfers Goals Three Impairment Wears 1 thin pad daily due to uirnary leakage after urinating. Short Term Goal (STG) Decrease tenderness 12-6 of PF clock with self stretching with wand. STG Duration 4 wks-11/13/23 Chcf Goal (LTG) Pt will be able to stop having to use a thin pad daily. LTG Duration 8 wks-12/11/23 Two Impairment Urinary leakage daily after urinating. Short Term Goal (STG) Pt will be educated in core pressure management with transfers, ADLs and during anticipated exercise (walking) . STG Duration 4 wks-11/13/23 Billing Clerk Goal (LTG) Eliminate urinary leakage to avoid corrective surgery. LTG Duration 8 wks-12/11/23 One Impairment Pt lacks appropriate self care HEP Short Term Goal (STG) Pt will be educated in and proper vulvar/genital care. STG Duration 4 wks-11/13/23 Billing Clerk Goal (LTG) Pt will be independent in HEP of hip mobility, core & hip strengthening, and PF stretching exercises. LTG Duration 12 wks-01/08/24 Assessment Summary Assessment Pt is a 67 yo female who presents with urinary leakage/ incomplete uterovaginal prolapse due to soft tissue tightness in 12-6 of PF clock, resulting in weak quick & long hold contraction strength . Pt demonstrates a urethocele, proably due to poor core pressure management and is not familiar with proper diaphragmatic breathing . She does have some postural and physical limitations that may hinder her rehabilitation , causing core/pelvic stability and hip tightness. The pt will benefit from skilled physical therapy to eliminate urinary leakage after urination, decrease feeling of falling out and return her to her prior level of not needing a thin pad during the day for protection; she is expected to do well with therapy. Physical Therapy Plan Frequency and Duration Frequency of Treatment 1x/Week Duration of treatment (weeks) 12 Plan of Care Start Date 10/13/23 Plan of Care End Date 01/08/24 Therapeutic Interventions Therapeutic Interventions Home Exercise Program,Manual Therapy,Neuromuscular Re- education,Self-Care/Home Management,Soft Tissue Mobilization,Taping, Therapeutic Activities, Therapeutic Exercises Next Visit Focus/Plan Next Note Type Treatment Note Next Visit Plan Next: Reviewed Bladder dairy and discussed fluid intake (AM /PM) & nighttime voiding frequency. Assess LBP. Pt education proper vulvar and perineal care with handout issued. Education: PF contractions in isolation of substitute muscles, coordination of proper breaths with ADLs, transfers, body mechanics and exercise. Hip stretch (IR L>R, ER R>L, hip AD, trunk flex). POC: Sacral balancing, Pt education, Manual therapy. Therapeutic Exercises, Therapeutic Activities, Neuromuscular Reeducation, ? Biofeedback with vaginal sensor for PF >< awareness and strengthening.
--- NOTE | 2023-10-13 17:54 | PT.OPPOC ---
Physical, Occupational & Speech Therapy At [facility] Current Diagnoses Muscle weakness (generalized) (10/13/23) Incomplete uterovaginal prolapse (10/13/23) Visit Care Team Role Provider Type Hali Salazar PA-C Family Provider Non-Staff Primary Care Provider Specialty: Medical Address: [facility] [address], [place], [address] Email: Sherrie Nuñez MD Attending Provider Physician Referring Provider Specialty: Gynecology STAIN APPLICATOR Obstetrics Address: [address] [place] [address] [address], [place], [address] Email: [email or web address] Plan Of Care PT-OP-T Assessment and Plan Start: 10/05/23 17:57 Freq: Status: Active Protocol: Document 10/13/23 07:32 LRN (Rec: 10/13/23 08:20 LRN [id number]) Physical Therapy Assessment Rehab Potential Rehabilitation Potential Excellent Evaluation Complexity Number of Personal Factors/Comorbidities 1-2 Number of Body Systems Impaired 4 or More Clinical Presentation at Evaluation Evolving Impairments Impairments Pain,ROM,Strength,Transfers Goals Three Impairment Wears 1 thin pad daily due to uirnary leakage after urinating. Short Term Goal (STG) Decrease tenderness 12-6 of PF clock with self stretching with wand. STG Duration 4 wks-11/13/23 Yarn Mercerizer Operator Goal (LTG) Pt will be able to stop having to use a thin pad daily. LTG Duration 8 wks-12/11/23 Two Impairment Urinary leakage daily after urinating. Short Term Goal (STG) Pt will be educated in core pressure management with transfers, ADLs and during anticipated exercise (walking) . STG Duration 4 wks-11/13/23 Senior Living Goal (LTG) Eliminate urinary leakage to avoid corrective surgery. LTG Duration 8 wks-12/11/23 One Impairment Pt lacks appropriate self care HEP Short Term Goal (STG) Pt will be educated in and proper vulvar/genital care. STG Duration 4 wks-11/13/23 Yarn Mercerizer Operator Goal (LTG) Pt will be independent in HEP of hip mobility, core & hip strengthening, and PF stretching exercises. LTG Duration 12 wks-01/08/24 Assessment Summary Assessment Pt is a 67 yo female who presents with urinary leakage/ incomplete uterovaginal prolapse due to soft tissue tightness in 12-6 of PF clock, resulting in weak quick & long hold contraction strength . Pt demonstrates a urethocele, proably due to poor core pressure management and is not familiar with proper diaphragmatic breathing . She does have some postural and physical limitations that may hinder her rehabilitation , causing core/pelvic stability and hip tightness. The pt will benefit from skilled physical therapy to eliminate urinary leakage after urination, decrease feeling of falling out and return her to her prior level of not needing a thin pad during the day for protection; she is expected to do well with therapy. Physical Therapy Plan Frequency and Duration Frequency of Treatment 1x/Week Duration of treatment (weeks) 12 Plan of Care Start Date 10/13/23 Plan of Care End Date 01/08/24 Therapeutic Interventions Therapeutic Interventions Home Exercise Program,Manual Therapy,Neuromuscular Re- education,Self-Care/Home Management,Soft Tissue Mobilization,Taping, Therapeutic Activities, Therapeutic Exercises Next Visit Focus/Plan Next Note Type Treatment Note Next Visit Plan Next: Reviewed Bladder dairy and discussed fluid intake (AM /PM) & nighttime voiding frequency. Assess LBP. Pt education proper vulvar and perineal care with handout issued. Education: PF contractions in isolation of substitute muscles, coordination of proper breaths with ADLs, transfers, body mechanics and exercise. Hip stretch (IR L>R, ER R>L, hip AD, trunk flex). POC: Sacral balancing, Pt education, Manual therapy. Therapeutic Exercises, Therapeutic Activities, Neuromuscular Reeducation, ? Biofeedback with vaginal sensor for PF >< awareness and strengthening. Plan of Care Dates Plan of Care Start Date 10/13/23 Plan of Care End Date 01/08/24 Electronically Signed by: Sarah Huerta, PT 10/13/23 8945 If you are in agreement with this Plan of Care, please return a signed and dated copy. I have reviewed this Plan of Care and certify that the skilled therapy services above are required to meet the patient?s needs. Physician Signature Date Printed Name and Credentials Clinical Instructor Signature Printed Name and Credentials
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
--- NOTE | 2023-12-31 19:14 | PT.OPPOC ---
Physical, Occupational & Speech Therapy At [facility] Current Diagnoses Muscle weakness (generalized) (12/31/23) Incomplete uterovaginal prolapse (12/31/23) Visit Care Team Role Provider Type Hali Salazar PA-C Family Provider Non-Staff Primary Care Provider Specialty: Medical Address: [facility] [address], [place], [address] Email: Sherrie Nuñez MD Attending Provider Physician Referring Provider Specialty: Gynecology MEAT CLERK Obstetrics Address: [address] [place] [address] [address], [place], [address] Email: [email or web address] Plan Of Care PT-OP-T Assessment and Plan Start: 10/05/23 17:57 Freq: Status: Active Protocol: Document 12/31/23 07:32 LRN (Rec: 12/31/23 08:21 LRN [id number]) Physical Therapy Assessment Rehab Potential Rehabilitation Potential Excellent Evaluation Complexity Number of Personal Factors/Comorbidities 1-2 Number of Body Systems Impaired 4 or More Clinical Presentation at Evaluation Evolving Impairments Impairments Pain,ROM,Strength,Transfers Goals Three Impairment Wears 1 thin pad daily due to uirnary leakage after urinating. Short Term Goal (STG) Decrease tenderness 12-6 of PF clock with self stretching with wand. STG Duration 8 wks-02/26/24 Box Spring Frame Builder Goal (LTG) Pt will be able to stop having to use a thin pad daily. LTG Duration 12 wks-03/25/24 Two Impairment Urinary leakage daily after urinating. Short Term Goal (STG) Pt will be educated in core pressure management with transfers, ADLs and during anticipated exercise (walking) . STG Duration 8 wks-02/26/24 [facility] Goal (LTG) Eliminate urinary leakage to avoid corrective surgery. LTG Duration 12 wks-03/25/24 One Impairment Pt lacks appropriate self care HEP Short Term Goal (STG) Pt will be educated in and proper vulvar/genital care. STG Duration 8 wks-02/26/24 Box Spring Frame Builder Goal (LTG) Pt will be independent in HEP of hip mobility, core & hip strengthening, and PF stretching exercises. 11/02/23: HEP: SKTC, DKTC with knees out to sides holding behind thighs. LTG Duration 12 wks-03/25/24 Assessment Summary Assessment Pt is a 67 yo female with urinary leakage (w/incomplete uterovaginal prolapse-without uterus), soft tissue tightness in 12-6 of PF clock, quick & long hold weakness, and postural and physical limitations adding to her core /pelvic instability and hip tightness, poor core pressure management, possible LB involvement to weakness. Today she had more L LBP from Hamstring stretch ex and was sore 5 days after last session , although her ramses anterior thigh pain is resolved and has much less bilateral anterior hip pain. The pt has had difficulty focusing on her PF ex's due to L LBP and her R plantarfasciitis pain, and she as of lately as reported being very active at home. The pt has had very slow progress in addressing her PF weakness, partly due to L LBP & R foot pain. The pt is leaving on a trip to [place] for sewing activities and would like to resume pelvic floor PT rehab on return. PT rehab time is expected to be extended due to PT being on vacation and pt trips. I believe it would be appropriate on my return to assess the pt in her progress on her HEP for improving hip flexibility and stretching of her PF. Further pt education, STM (including self PF stretching) and core pressure management to minimize uterovaginal prolapse. Physical Therapy Plan Frequency and Duration Frequency of Treatment 1x/Week Duration of treatment (weeks) 12 Plan of Care Start Date 12/31/23 Plan of Care End Date 03/25/24 Therapeutic Interventions Therapeutic Interventions Home Exercise Program,Manual Therapy,Neuromuscular Re- education,Self-Care/Home Management,Soft Tissue Mobilization,Therapeutic Activities,Therapeutic Exercises Other Referrals/Consults Referrals/Consults Recommended Consult for assessment of LBP. Next Visit Focus/Plan Next Note Type Treatment Note Next Visit Plan Next: New POC needed if pt not able to come in again until 03/28/24. Assess for PF pain and pt's response to travel protecting her LB. Pt education proper vulvar and perineal care with handout. Education: PF contractions in isolation of substitute muscles f/b relaxation, coordination of proper breaths with ADLs, transfers, body mechanics and exercise to minimize diagnosed uterovaginal prolapse. Hip stretch (IR L>R, ER R>L, hip AD, trunk flex). Assess for SIJ dysfunction in absence of R ASIS pain. POC: LB care and if needed sacral balancing, Pt education , Manual therapy. Therapeutic Exercises, Therapeutic Activities, Neuromuscular Reeducation, ? Biofeedback with vaginal sensor for PF >< awareness and strengthening. Plan of Care Dates Plan of Care Start Date 12/31/23 Plan of Care End Date 03/25/24 Electronically Signed by: Sarah Huerta, PT 12/31/23 8472 If you are in agreement with this Plan of Care, please return a signed and dated copy. I have reviewed this Plan of Care and certify that the skilled therapy services above are required to meet the patient?s needs. Physician Signature Date Printed Name and Credentials Clinical Instructor Signature Printed Name and Credentials
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
== END 2024-05-02 10:38 | disposition home or self-care (01) ==
LOC: PHYS 09:45
PROVIDERS: Family Provider Physician Assistant Medical; PCP Physician Assistant Medical; Referring Provider Obstetrics & Gynecology; Visit Provider Obstetrics & Gynecology
DX: N81.2 Incomplete uterovaginal prolapse (principal); M62.81 Muscle weakness (generalized)
CPT/HCPCS: 97110; 97140; 97162; 97530; 97535

== ENCOUNTER → 2024-08-25 10:44 | Outpatient (CLI) | payer MEDICARE, OTHER, SELFPAY ==
[2024-08-26 14:11] LABS: Candida species Negative (Negative); Gardnerella vaginalis Positive (Negative); Trichomoas vaginalis Negative (Negative)
== END ==
PROVIDERS: Family Provider Physician Assistant Medical; PCP Physician Assistant Medical; Visit Provider Obstetrics & Gynecology
DX: N89.8 Other specified noninflammatory disorders of vagina (principal)
CPT/HCPCS: 87480; 87510; 87660

== ENCOUNTER → 2024-09-06 09:53 | Outpatient (CLI) | payer MEDICARE, OTHER, SELFPAY ==
[2024-09-07 14:36] LABS: Candida species Negative (Negative); Gardnerella vaginalis Negative (Negative); Trichomoas vaginalis Negative (Negative)
== END ==
PROVIDERS: Family Provider Physician Assistant Medical; PCP Physician Assistant Medical; Visit Provider Obstetrics & Gynecology
DX: N95.2 Postmenopausal atrophic vaginitis (principal)
CPT/HCPCS: 87480; 87510; 87660

== ENCOUNTER → 2025-04-06 09:21 | Outpatient (CLI) | payer MEDICARE, OTHER, SELFPAY ==
[2025-04-07 13:10] LABS: Trichomoas vaginalis Negative (Negative)
== END ==
PROVIDERS: Family Provider Physician Assistant Medical; PCP Physician Assistant Medical; Visit Provider Obstetrics & Gynecology
DX: N89.8 Other specified noninflammatory disorders of vagina (principal); R30.0 Dysuria
CPT/HCPCS: 81514; 87086